=== PATIENT | male | born 1985 | race Caucasian/White ===

== ENCOUNTER 2017-01-24 06:58 | Emergency (ER) | payer BC ==
[2017-01-24] MEDS ORDERED: Sodium Chloride 0.9% 10 ML Syringe FLUSH PRN (07:12)
[2017-01-24] MEDS ORDERED: Ketorolac 30 MG/ML SDV IVPUSH ONE (07:12)
[2017-01-24] MEDS ORDERED: Ondansetron 4 MG/2 ML SDV IVPUSH ONE (07:12)
[2017-01-24] MEDS ORDERED: Sodium Chloride 0.9% 2.5 ML Syringe FLUSH PRN (07:12)
[2017-01-24] MEDS ORDERED: Sodium Chloride 0.9% 1,000 ML IV ONE (07:12)
[2017-01-24] MEDS ORDERED: HYDROmorphone 2 MG/ML Syringe IVPUSH ONE (07:12)
--- NOTE | 2017-01-24 07:16 | EDM.PDOC ---
ED HPI GENERAL MEDICAL PROBLEM - General Chief Complaint: Abdominal Pain Stated Complaint: ABDOMINAL PAIN, THINKS APPENDICITIS Time Seen by Provider: 01/24/17 07:07 - History of Present Illness INITIAL COMMENTS - FREE TEXT/NARRATIVE: HISTORY AND PHYSICAL: History of present illness: The patient is a healthy 31-year-old male with no pre-existing medical problems who presents with complaints of right lower quadrant pain that started gradually this morning at about 5 AM and has continued. He did not start elsewhere and migrate and it does not radiate and it is a stabbing-like character and deep according to the patient. He has no history of trauma and did have an episode of vomiting before coming here. He said he felt very hot car driving here and in fact had the air conditioning on but now feels cold. He has not had any pre-existing upper respiratory symptoms and he did not eat any new foods. He's had no diarrhea and has had normal bowel movements the last few days without black or blood. The patient has no urinary complaints and did not take anything for pain prior to coming here. He says he has had pain like this in the past and it was diagnosed as colitis but that was quite some time ago and this is somewhat different. He is Concerned that this is appendicitis. He has no testicular pain or swelling and no masses in his perineum. Please note that the patient had a normal evening last night eating [employer] for dinner and he slept the whole night waking for work without the pain. The pain started gradually as he was getting ready and going to work Review of systems: As per history of present illness and below otherwise all systems reviewed and negative. Past medical history: As per history of present illness and as reviewed below otherwise noncontributory. Surgical history: As per history of present illness and as reviewed below otherwise noncontributory. Social history: No reported history of drug or alcohol abuse. Family history: As per history of present illness and as reviewed below otherwise noncontributory. Physical exam: General: Well-developed well-nourished man who is nontoxic speaking in full sentences. He is mildly overweight and vital signs have been reviewed by me HEENT: Atraumatic, normocephalic, negative for conjunctival pallor or scleral icterus, mucous membranes tacky throat clear, neck supple, nontender, trachea midline. Lungs: Clear to auscultation, breath sounds equal bilaterally, chest nontender. Heart: S1S2, regular, negative for clicks, rubs, or JVD. Abdomen: Soft, nondistended, mildly tender on deep palpation in the right lower quadrant without rebound or guarding, bowel sounds are hypoactive and there is no tympany. Negative for masses or hepatosplenomegaly. Pelvis: Stable nontender. Genitourinary: Deferred. Rectal: Deferred. Extremities: Atraumatic, negative for cords or calf pain. Neurovascular unremarkable. Neuro: Awake, alert, oriented. Cranial nerves II through XII unremarkable. Cerebellum unremarkable. Motor and sensory unremarkable throughout. Exam nonfocal. Diagnostics: CBC CMP lipase UA CT scan of the abdomen and pelvis Therapeutics: IV fluids Toradol Dilaudid Zofran Flomax Patient feels improved and we have discussed all testing results including the 4 mm proximal stone on the right side. I will give a dose of Flomax here and a prescription for home as well as [place] and Zofran and urine strainers. The patient is aware of reasons to return to the ED and is aware of the need to connect with urology. He says he is going back home to [place] next week and I told him he can either connect here or with the urologist early next week at home Impression: Right ureteraolithiasis Definitive disposition and diagnosis as appropriate pending reevaluation and review of above. - Related Data Allergies Allergy/AdvReac Type Severity Reaction Status Date / Time No Known Allergies Allergy Verified 01/24/17 06:59 Home Meds: Home Meds . [No Known Home Meds] 01/24/17 [History] Past Medical History HEENT History: Reports: None Cardiovascular History: Reports: None Respiratory History: Reports: None Gastrointestinal History: Reports: None Genitourinary History: Reports: None Musculoskeletal History: Reports: None Neurological History: Reports: None Psychiatric History: Reports: None Endocrine/Metabolic History: Reports: None Hematologic History: Reports: None Immunologic History: Reports: None Oncologic (Cancer) History: Reports: None Dermatologic History: Reports: None - Past Surgical History Head Surgeries/Procedures: Reports: None HEENT Surgical History: Reports: None Cardiovascular Surgical History: Reports: None Respiratory Surgical History: Reports: None GI Surgical History: Reports: None Male Surgical History: Reports: None Endocrine Surgical History: Reports: None Neurological Surgical History: Reports: None Musculoskeletal Surgical History: Reports: None Oncologic Surgical History: Reports: None Dermatological Surgical History: Reports: None Social & Family History - Family History Family Medical History: Noncontributory - Tobacco Use Smoking Status *Q: Never Smoker - Caffeine Use Caffeine Use: Reports: Coffee, Energy Drinks, Soda, Tea - Recreational Drug Use Recreational Drug Use: No ED ROS GENERAL - Review of Systems Review Of Systems: ROS reveals no pertinent complaints other than HPI. ED EXAM, GENERAL - Physical Exam Exam: See Below (See dictation) Course - Vital Signs Last Recorded V/S: Last Vital Signs Temp 36.2 C 01/24/17 06:59 Pulse 65 01/24/17 06:59 Resp 18 01/24/17 06:59 BP 176/89 H 01/24/17 06:59 Pulse Ox 96 01/24/17 06:59 - Orders/Labs/Meds Orders: Active Orders 24 hr Category Date Time Status Communication Order [RC] STAT Care 01/24/17 09:51 Ordered Sodium Chloride 0.9% [Saline Flush] Med 01/24/17 07:12 Active 10 ml FLUSH ASDIRECTED PRN Sodium Chloride 0.9% [Saline Flush] Med 01/24/17 07:12 Active 2.5 ml FLUSH ASDIRECTED PRN Saline Lock Insert [OM.PC] Stat Oth 01/24/17 07:11 Ordered Medication Orders Sodium Chloride (Saline Flush) 10 ml FLUSH ASDIRECTED PRN PRN Reason: Keep Vein Open Last Admin: 01/24/17 07:35 Dose: 10 ml Sodium Chloride (Saline Flush) 2.5 ml FLUSH ASDIRECTED PRN PRN Reason: Keep Vein Open Last Admin: 01/24/17 07:34 Dose: 2.5 ml Labs: Laboratory Tests 01/24/17 01/24/17 01/24/17 Range/Units 07:40 07:40 07:40 WBC 7.98 (4.0-11.0) K/uL RBC 5.55 (4.50-5.90) M/uL Hgb 16.8 (13.0-17.0) g/dL Hct 47.6 (38.0-50.0) % MCV 85.8 (80.0-98.0) fL MCH 30.3 (27.0-32.0) pg MCHC 35.3 (31.0-37.0) g/dL RDW Std Deviation 41.7 (28.0-62.0) fl RDW Coeff of Martina 14 (11.0-15.0) % Plt Count 224 (150-400) K/uL MPV 10.60 (7.40-12.00) fL Neut % (Auto) 83.8 H (48.0-80.0) % Lymph % (Auto) 11.7 L (16.0-40.0) % [place] % (Auto) 3.9 (0.0-15.0) % Eos % (Auto) 0.3 (0.0-7.0) % Baso % (Auto) 0.3 (0.0-1.5) % Neut # (Auto) 6.7 H (1.4-5.7) K/uL Lymph # (Auto) 0.9 (0.6-2.4) K/uL [place] # (Auto) 0.3 (0.0-0.8) K/uL Eos # (Auto) 0.0 (0.0-0.7) K/uL Baso # (Auto) 0.0 (0.0-0.1) K/uL Nucleated RBC % 0.0 /100WBC Nucleated RBCs # 0 K/uL Sodium 140 (136-146) mmol/L Potassium 4.0 (3.5-5.1) mmol/L Chloride 106 (98-110) mmol/L Carbon Dioxide 26 (21-31) mmol/L BUN 13 (6.0-23.0) mg/dL Creatinine 1.0 (0.6-1.5) mg/dL Est Cr Clr Drug Dosing 115.32 mL/min Estimated GFR (MDRD) > 60.0 ml/min Glucose 116 H (60-110) mg/dL Calcium 9.8 (8.8-10.8) mg/dL Total Bilirubin 0.5 (0.1-1.5) mg/dL AST 27 (5-40) IU/L ALT 56 H (8-54) IU/L Alkaline Phosphatase 73 (40-150) Total Protein 7.6 (6.0-8.0) g/dL Albumin 4.7 (3.5-5.0) g/dL Globulin 2.9 (2.0-3.5) g/dL Albumin/Globulin Ratio 1.6 (1.3-2.8) Lipase 29 (7-80) U/L Urine Color YELLOW Urine Appearance CLEAR Urine pH 7.0 (5.0-8.0) Ur Specific [place] 1.010 (1.001-1.035) Urine Protein NEGATIVE (NEGATIVE) mg/dL Urine Glucose (UA) NEGATIVE (NEGATIVE) mg/dL Urine Ketones NEGATIVE (NEGATIVE) mg/dL Urine Occult Blood LARGE H (NEGATIVE) Urine Nitrite NEGATIVE (NEGATIVE) Urine Bilirubin NEGATIVE (NEGATIVE) Urine Urobilinogen 0.2 (<2.0) EU/dL Ur Leukocyte Esterase NEGATIVE (NEGATIVE) Urine RBC 30-40 (0-2/HPF) Urine WBC 2-4 (0-5/HPF) Ur Epithelial Cells FEW (NONE-FEW) Urine Bacteria RARE (NEGATIVE) Meds: Medications Generic Name Dose Route Start Last Admin Trade Name Danette PRN Reason Stop Dose Admin Sodium Chloride 10 ml 01/24/17 07:12 01/24/17 07:35 Saline Flush FLUSH 10 ml ASDIRECTED PRN Administration Keep Vein Open Sodium Chloride 2.5 ml 01/24/17 07:12 01/24/17 07:34 Saline Flush FLUSH 2.5 ml ASDIRECTED PRN Administration Keep Vein Open Discontinued Medications Generic Name Dose Route Start Last Admin Trade Name Danette PRN Reason Stop Dose Admin Hydromorphone HCl 0.5 mg 01/24/17 07:12 01/24/17 07:33 Dilaudid IVPUSH 01/24/17 07:13 0.5 mg ONETIME ONE Administration Sodium Chloride 1,000 mls @ 999 mls/hr 01/24/17 07:12 01/24/17 07:32 Normal Saline IV 01/24/17 08:12 999 mls/hr STAT ONE Administration Iopamidol 100 ml 01/24/17 09:01 01/24/17 09:03 Isovue Multipack-370 (76%) IVPUSH 01/24/17 09:02 100 ml ONETIME STA Administration Ketorolac Tromethamine 30 mg 01/24/17 07:12 01/24/17 07:33 Toradol IVPUSH 01/24/17 07:13 30 mg ONETIME ONE Administration Ondansetron HCl 4 mg 01/24/17 07:12 01/24/17 07:33 Zofran IVPUSH 01/24/17 07:13 4 mg ONETIME ONE Administration Tamsulosin HCl 0.4 mg 01/24/17 09:51 Flomax PO 01/24/17 09:52 ONETIME ONE Departure - Departure Time of Disposition: 09:54 Disposition: Home, Self-Care 01 Condition: Good Clinical Impression: Ureterolithiasis, Kidney stone on right side - Discharge Information Referrals: PCP,None [Primary Care Provider] - Forms: ED Department Discharge Additional Instructions: The following information is given to patients seen in the emergency department who are being discharged to home. This information is to outline your options for follow-up care. We provide all patients seen in our emergency department with a follow-up referral. The need for follow-up, as well as the timing and circumstances, are variable depending upon the specifics of your emergency department visit. If you don't have a primary care physician on staff, we will provide you with a referral. We always advise you to contact your personal physician following an emergency department visit to inform them of the circumstance of the visit and for follow-up with them and/or the need for any referrals to a consulting specialist. The emergency department will also refer you to a specialist when appropriate. This referral assures that you have the opportunity for followup care with a specialist. All of these measure are taken in an effort to provide you with optimal care, which includes your followup. Under all circumstances we always encourage you to contact your private physician who remains a resource for coordinating your care. When calling for followup care, please make the office aware that this follow-up is from your recent emergency room visit. If for any reason you are refused follow-up, please contact the [facility] emergency department at and ask to speak to the emergency department charge nurse. [facility] Specialty Care-Urology [address] [place] [id number] [facility] Primary care- Internal Medicine and Family [address] [id number] Please push hydration and strain all urine looking for the stone. Take medications as prescribed. Please call and follow-up with the urologist either here or when you get home for evaluation of the movement of the stone. Return to ER as needed and as discussed - My Orders Last 24 Hours: My Active Orders 01/24/17 07:11 Saline Lock Insert [OM.PC] Stat 01/24/17 07:12 Sodium Chloride 0.9% [Saline Flush] 10 ml FLUSH ASDIRECTED PRN Sodium Chloride 0.9% [Saline Flush] 2.5 ml FLUSH ASDIRECTED PRN 01/24/17 09:51 Communication Order [RC] STAT - Assessment/Plan Last 24 Hours: My Active Orders 01/24/17 07:11 Saline Lock Insert [OM.PC] Stat 01/24/17 07:12 Sodium Chloride 0.9% [Saline Flush] 10 ml FLUSH ASDIRECTED PRN Sodium Chloride 0.9% [Saline Flush] 2.5 ml FLUSH ASDIRECTED PRN 01/24/17 09:51 Communication Order [RC] STAT
[2017-01-24 08:38] LABS: CHLORIDE,CL 106 mmol/L (98-110); SODIUM,NA 140 mmol/L (136-146)
[2017-01-24] MEDS ORDERED: Iopamidol 755 MG/ML 500 ML Multipack Bottle IVPUSH STA (09:01)
--- NOTE | 2017-01-24 09:38 | CT ---
CT of the abdomen and pelvis with contrast. HISTORY: Pain TECHNIQUE: Axial CT images were obtained of the abdomen and pelvis following administration of 100 mL of Isovue-370 in the left antecubital fossa without complication. Coronal and sagittal reconstructio ns obtained. FINDINGS: The lung bases are clear, no pleural effusion. Liver, spleen, adrenal glands, and pancreas appear normal. The gallbladder is normal. No bulky retrop eritoneal lymphadenopathy or abdominal ascites. The kidneys enhance and function symmetrically. There is a 4 to 5 mm stone within the proximal right ureter with mild proximal hydronephrosis. There is a cyst within the left kidney. Tiny nonobstructing stone within the lower pole of the right kidney also noted. The large and small bowel are normal in caliber without evidence of obstruction. The appendix is norm al. No focal pericolonic inflammation or stranding. The urinary bladder appears normal. No bulky pelv ic lymphadenopathy or free pelvic fluid. No suspicious osseous abnormalities identified. IMPRESSION: 1. There is a 4 mm stone within the proximal right ureter with minimal proximal hydronephrosis.
[2017-01-24] MEDS ORDERED: Tamsulosin 0.4 MG Cap.ER PO ONE (09:51)
[2017-01-24 10:15] VITALS: BP 136/85
== END 2017-01-24 10:07 | disposition home or self-care (01) ==
LOC: MW.ED 06:58
DX: N13.2 Hydronephrosis with renal and ureteral calculous obstruction (principal)
CPT/HCPCS: 74177; 80053; 81001; 83690; 85025; 96361; 96374; 96375; 99284; A9270; J1170; J1885; J2405; J7040; Q9967; 99283

== ENCOUNTER 2017-03-10 01:11 | Emergency (ER) | payer BC ==
[2017-03-10] MEDS ORDERED: Ketorolac 30 MG/ML SDV IVPUSH ONE (01:21)
[2017-03-10] MEDS ORDERED: Tamsulosin 0.4 MG Cap.ER PO ONE (01:21)
[2017-03-10] MEDS ORDERED: Ondansetron 4 MG/2 ML SDV IVPUSH ONE (01:21)
--- NOTE | 2017-03-10 01:28 | EDM.PDOC ---
ED HPI GENERAL MEDICAL PROBLEM - General Chief Complaint: Flank Pain Stated Complaint: SEVERE ABDOMINAL PAIN/RT TESTICLE Time Seen by Provider: 03/10/17 01:25 - History of Present Illness INITIAL COMMENTS - FREE TEXT/NARRATIVE: HISTORY AND PHYSICAL: History of present illness: Patient [id number] white male history of urolithiasis was seen in the ER several months prior for this and now presents with same right flank tenderness nausea without vomiting fever chills denies trauma denies other concern Review of systems: As per history of present illness and below otherwise all systems reviewed and negative. Past medical history: As per history of present illness and as reviewed below otherwise noncontributory. Surgical history: As per history of present illness and as reviewed below otherwise noncontributory. Social history: No reported history of drug or alcohol abuse. Family history: As per history of present illness and as reviewed below otherwise noncontributory. Physical exam: HEENT: Atraumatic, normocephalic, pupils reactive, negative for conjunctival pallor or scleral icterus, mucous membranes moist, throat clear, neck supple, nontender, trachea midline. Lungs: Clear to auscultation, breath sounds equal bilaterally, chest nontender. Heart: S1S2, regular, negative for clicks, rubs, or JVD. Abdomen: Soft, nondistended, nontender. Negative for masses or hepatosplenomegaly. Right-sided costovertebral tenderness. Pelvis: Stable nontender. Genitourinary: Deferred. Rectal: Deferred. Extremities: Atraumatic, negative for cords or calf pain. Neurovascular unremarkable. Neuro: Awake, alert, oriented. Cranial nerves II through XII unremarkable. Cerebellum unremarkable. Motor and sensory unremarkable throughout. Exam nonfocal. Diagnostics: CBC CMP UA urine culture renal ultrasound Therapeutics: Normal saline 1 L bolus Toradol 30 mg IV Zofran 4 g IV Flomax 0.4 mg by mouth Impression: 1 acute right flank tenderness #2 history of ureterolithiasis Definitive disposition and diagnosis as appropriate pending reevaluation and review of above. - Related Data Allergies Allergy/AdvReac Type Severity Reaction Status Date / Time No Known Allergies Allergy Verified 03/10/17 01:16 Home Meds: Home Meds . [No Known Home Meds] 01/24/17 [History] Past Medical History HEENT History: Reports: None Cardiovascular History: Reports: None Respiratory History: Reports: None Gastrointestinal History: Reports: None Genitourinary History: Reports: None Musculoskeletal History: Reports: None Neurological History: Reports: None Psychiatric History: Reports: None Endocrine/Metabolic History: Reports: None Hematologic History: Reports: None Immunologic History: Reports: None Oncologic (Cancer) History: Reports: None Dermatologic History: Reports: None - Past Surgical History Head Surgeries/Procedures: Reports: None HEENT Surgical History: Reports: None Cardiovascular Surgical History: Reports: None Respiratory Surgical History: Reports: None GI Surgical History: Reports: None Male Surgical History: Reports: None Endocrine Surgical History: Reports: None Neurological Surgical History: Reports: None Musculoskeletal Surgical History: Reports: None Oncologic Surgical History: Reports: None Dermatological Surgical History: Reports: None Social & Family History - Family History Family Medical History: Noncontributory - Tobacco Use Smoking Status *Q: Never Smoker - Caffeine Use Caffeine Use: Reports: Coffee, Energy Drinks, Soda, Tea - Recreational Drug Use Recreational Drug Use: No ED ROS GENERAL - Review of Systems Review Of Systems: ROS reveals no pertinent complaints other than HPI. ED EXAM, GENERAL - Physical Exam Exam: See Below (See dictation) Course - Vital Signs Last Recorded V/S: Last Vital Signs Temp 36.6 C 03/10/17 01:11 Pulse 69 03/10/17 01:11 Resp 20 03/10/17 01:11 BP 132/92 H 03/10/17 01:11 Pulse Ox 98 03/10/17 01:11 - Orders/Labs/Meds Orders: Active Orders 24 hr Category Date Time Status Retroperitoneal Ltd [US] Stat Exams 03/10/17 01:25 Taken CULTURE URINE [RM] Stat Lab 03/10/17 01:40 Received Sodium Chloride 0.9% [Normal Saline] 1,000 ml Med 03/10/17 01:44 Active IV .Bolus Medication Orders Sodium Chloride (Normal Saline) 1,000 mls @ 999 mls/hr IV .Bolus ONE Stop: 03/10/17 02:44 Last Admin: 03/10/17 01:47 Dose: Not Given Labs: Laboratory Tests 03/10/17 03/10/17 03/10/17 Range/Units 01:40 01:40 01:40 WBC 11.37 H (4.0-11.0) K/uL RBC 5.49 (4.50-5.90) M/uL Hgb 16.4 (13.0-17.0) g/dL Hct 46.9 (38.0-50.0) % MCV 85.4 (80.0-98.0) fL MCH 29.9 (27.0-32.0) pg MCHC 35.0 (31.0-37.0) g/dL RDW Std Deviation 40.3 (28.0-62.0) fl RDW Coeff of Martina 13 (11.0-15.0) % Plt Count 244 (150-400) K/uL MPV 10.40 (7.40-12.00) fL Neut % (Auto) 85.3 H (48.0-80.0) % Lymph % (Auto) 9.2 L (16.0-40.0) % [place] % (Auto) 4.8 (0.0-15.0) % Eos % (Auto) 0.4 (0.0-7.0) % Baso % (Auto) 0.3 (0.0-1.5) % Neut # (Auto) 9.7 H (1.4-5.7) K/uL Lymph # (Auto) 1.1 (0.6-2.4) K/uL [place] # (Auto) 0.6 (0.0-0.8) K/uL Eos # (Auto) 0.1 (0.0-0.7) K/uL Baso # (Auto) 0.0 (0.0-0.1) K/uL Sodium 139 (136-146) mmol/L Potassium 4.0 (3.5-5.1) mmol/L Chloride 106 (98-110) mmol/L Carbon Dioxide 24 (21-31) mmol/L BUN 15 (6.0-23.0) mg/dL Creatinine 1.1 (0.6-1.5) mg/dL Est Cr Clr Drug Dosing TNP Estimated GFR (MDRD) > 60.0 ml/min Glucose 142 H (60-110) mg/dL Calcium 9.6 (8.8-10.8) mg/dL Total Bilirubin 0.5 (0.1-1.5) mg/dL AST 30 (5-40) IU/L ALT 61 H (8-54) IU/L Alkaline Phosphatase 82 (40-150) Total Protein 7.6 (6.0-8.0) g/dL Albumin 4.7 (3.5-5.0) g/dL Globulin 2.9 (2.0-3.5) g/dL Albumin/Globulin Ratio 1.6 (1.3-2.8) Urine Color YELLOW Urine Appearance CLEAR Urine pH 7.0 (5.0-8.0) Ur Specific [place] 1.020 (1.001-1.035) Urine Protein NEGATIVE (NEGATIVE) mg/dL Urine Glucose (UA) NEGATIVE (NEGATIVE) mg/dL Urine Ketones NEGATIVE (NEGATIVE) mg/dL Urine Occult Blood NEGATIVE (NEGATIVE) Urine Nitrite NEGATIVE (NEGATIVE) Urine Bilirubin NEGATIVE (NEGATIVE) Urine Urobilinogen 0.2 (<2.0) EU/dL Ur Leukocyte Esterase NEGATIVE (NEGATIVE) Urine RBC 1-3 (0-2/HPF) Urine WBC 1-3 (0-5/HPF) Ur Epithelial Cells RARE (NONE-FEW) Urine Bacteria FEW (NEGATIVE) Meds: Medications Generic Name Dose Route Start Last Admin Trade Name Freq PRN Reason Stop Dose Admin Sodium Chloride 1,000 mls @ 999 mls/hr 03/10/17 01:44 03/10/17 01:47 Normal Saline IV 03/10/17 02:44 Not Given .Bolus ONE Discontinued Medications Generic Name Dose Route Start Last Admin Trade Name Freq PRN Reason Stop Dose Admin Sodium Chloride 1,000 mls @ 999 mls/hr 03/10/17 01:30 03/10/17 01:43 Normal Saline IV 999 mls/hr ASDIRECTED SANJANA Administration Ketorolac Tromethamine 30 mg 03/10/17 01:21 03/10/17 01:43 Toradol IVPUSH 03/10/17 01:22 30 mg ONETIME ONE Administration Ondansetron HCl 4 mg 03/10/17 01:21 03/10/17 01:44 Zofran IVPUSH 03/10/17 01:22 4 mg ONETIME ONE Administration Tamsulosin HCl 0.4 mg 03/10/17 01:21 03/10/17 01:46 Flomax PO 03/10/17 01:22 0.4 mg ONETIME ONE Administration Departure - Departure Time of Disposition: 02:28 Disposition: Home, Self-Care 01 Condition: Good Clinical Impression: Right flank pain - Discharge Information Referrals: PCP,None [Primary Care Provider] - Forms: ED Department Discharge Additional Instructions: The following information is given to patients seen in the emergency department who are being discharged to home. This information is to outline your options for follow-up care. We provide all patients seen in our emergency department with a follow-up referral. The need for follow-up, as well as the timing and circumstances, are variable depending upon the specifics of your emergency department visit. If you don't have a primary care physician on staff, we will provide you with a referral. We always advise you to contact your personal physician following an emergency department visit to inform them of the circumstance of the visit and for follow-up with them and/or the need for any referrals to a consulting specialist. The emergency department will also refer you to a specialist when appropriate. This referral assures that you have the opportunity for followup care with a specialist. All of these measure are taken in an effort to provide you with optimal care, which includes your followup. Under all circumstances we always encourage you to contact your private physician who remains a resource for coordinating your care. When calling for followup care, please make the office aware that this follow-up is from your recent emergency room visit. If for any reason you are refused follow-up, please contact the [facility] emergency department at and asked to speak to the emergency department charge nurse. [facility] Specialty Care - Urology [address] [place] [id number] Motrin/Tylenol as directed follow-up with urology clinic above return as needed as discussed - My Orders Last 24 Hours: My Active Orders 03/10/17 01:25 Retroperitoneal Ltd [US] Stat 03/10/17 01:40 CULTURE URINE [RM] Stat 03/10/17 01:44 Sodium Chloride 0.9% [Normal Saline] 1,000 ml IV .Bolus - Assessment/Plan Last 24 Hours: My Active Orders 03/10/17 01:25 Retroperitoneal Ltd [US] Stat 03/10/17 01:40 CULTURE URINE [RM] Stat 03/10/17 01:44 Sodium Chloride 0.9% [Normal Saline] 1,000 ml IV .Bolus
[2017-03-10] MEDS ORDERED: Sodium Chloride 0.9% 1,000 ML IV SCH (01:30)
[2017-03-10] MEDS ORDERED: Sodium Chloride 0.9% 1,000 ML IV ONE (01:44)
[2017-03-10 02:11] LABS: CHLORIDE,CL 106 mmol/L (98-110); SODIUM,NA 139 mmol/L (136-146)
[2017-03-10 02:55] VITALS: BP 127/88
--- NOTE | 2017-03-10 14:19 | US ---
EXAM DATE: 03/10/17 PATIENT'S AGE: 32 Patient: RAGHU PARDO Facility: [place], [place] Site . Site : 1985 Study: US Abdomen [id number] 2:07:48 AM Ordering Physician: Laura Chapin Final Report: INDICATION: Right flank pain TECHNIQUE: Ultrasound renal bilateral. [place]-scale and color Doppler sonographic images were acquired of the kidneys and urinary bladder. COMPARISON: CT 01/24/17 FINDINGS: Right kidney: 11.7 cm. Normal echotexture and cortex noted. Mild right renal pelvicaliectasis is seen. Left kidney: 11.8 cm. Normal echotexture and cortex noted. No masses, stones, or hydronephrosis seen. Bladder: The bladder is unremarkable in appearance. A right ureteral jet is noted. IMPRESSION: 1. Mild right renal pelvicaliectasis is seen. Dictated by Christian Pillai MD @ 03/10/2017 2:18:45 AM Dictated by: Christian Pillai MD @ 03/10/2017 02:19:03 (Electronic Signature) Report Signed by Proxy. [facility]
== END 2017-03-10 02:57 | disposition home or self-care (01) ==
LOC: MW.ED 01:11
DX: R10.9 Unspecified abdominal pain (principal); R10.819 Abdominal tenderness, unspecified site
CPT/HCPCS: 36415; 76775; 80053; 81001; 85025; 87086; 96361; 96374; 96375; 99284; A9270; J1885; J2405; J7040; 99282

== ENCOUNTER 2017-03-14 07:40 | Day surgery (SDC) | payer BC ==
[~2017-03-14 07:40] MED LIST: Iopamidol 408 MG/ML 50 ML SDV ONE; Lactated Ringers 1,000 ML IV SCH; Sodium Chloride 0.9% 2.5 ML Syringe FLUSH PRN; ceFAZolin 2 GM in Premix Bag 1 BAG IV ONE
[2017-03-14] MEDS ORDERED: Sodium Chloride 0.9% 10 ML Syringe FLUSH PRN (08:00)
[2017-03-14] MEDS ORDERED: Lidocaine 2% 5 ML SDV ONE (08:55)
[2017-03-14] MEDS ORDERED: Rocuronium 10 MG/ML 10 ML Syringe ONE (08:56)
[2017-03-14] MEDS ORDERED: Ketorolac 30 MG/ML SDV ONE (08:56)
[2017-03-14] MEDS ORDERED: Midazolam 1 MG/ML 2 ML SDV ONE (08:56)
[2017-03-14] MEDS ORDERED: Neostigmine Methylsulfate 1 MG/ML 5 ML Syringe ONE (08:56)
[2017-03-14] MEDS ORDERED: fentaNYL 100 MCG/2 ML SDV ONE (08:56)
[2017-03-14] MEDS ORDERED: Propofol 200 MG/20 ML SDV ONE (08:56)
[2017-03-14] MEDS ORDERED: Ondansetron 4 MG/2 ML SDV ONE (08:56)
--- NOTE | 2017-03-14 09:28 | PCM.PREANE ---
Preanesthetic Assessment - Anesthesia/Transfusion/Family Hx Anesthesia History: No Prior Anesthesia Family History of Anesthesia Reaction: No Transfusion History: No Prior Transfusion(s) Intubation History: Unknown - Review of Systems General: No Symptoms Pulmonary: No Symptoms, Other (recent cold, no coughing presently) Cardiovascular: No Symptoms Gastrointestinal: Abdominal Pain (mild pain over kidney , no pain meds used) Neurological: No Symptoms Other: Reports: None - Physical Assessment NPO Status Date: 03/13/17 NPO Status Time: 20:00 O2 Sat by Pulse Oximetry: 98 Respiratory Rate: 16 Vital Signs: Last Vital Signs Temp 98.1 F 03/14/17 07:50 Pulse 65 03/14/17 07:50 Resp 16 03/14/17 07:50 BP 141/91 H 03/14/17 07:50 Pulse Ox 98 03/14/17 07:50 Height: 6 ft Weight: 230 lb ASA Class: 2 Mental Status: Alert & Oriented x3 Airway Class: Mallampati = 1 Dentition: Reports: Normal Dentition Thyro-Mental Finger Breadths: 3 Mouth Opening Finger Breadths: 3 ROM/Head Extension: Full Lungs: Clear to Auscultation, Normal Respiratory Effort Cardiovascular: Regular Rate, Regular Rhythm, No Murmurs - Allergies Allergies/Adverse Reactions: Allergies Allergy/AdvReac Type Severity Reaction Status Date / Time No Known Allergies Allergy Verified 03/10/17 01:16 - Blood Blood Available: No Product(s) Available: None - Acknowledgements Anesthesia Type Planned: General Anesthesia (LMA vs OETT) Pt an Appropriate Candidate for the Planned Anesthesia: Yes Alternatives and Risks of Anesthesia Discussed w Pt/Guardian: Yes Pt/Guardian Understands and Agrees with Anesthesia Plan: Yes PreAnesthesia Questionnaire - Past Health History Medical/Surgical History: Denies Medical/Surgical History HEENT History: Reports: None Cardiovascular History: Reports: None Respiratory History: Reports: None Gastrointestinal History: Reports: None Genitourinary History: Reports: None Musculoskeletal History: Reports: Fracture Other Musculoskeletal History: hx of fx arm and clavicle as a child Neurological History: Reports: None Psychiatric History: Reports: None Endocrine/Metabolic History: Reports: Obesity/BMI 30+ Hematologic History: Reports: None Immunologic History: Reports: None Oncologic (Cancer) History: Reports: None Dermatologic History: Reports: None - Past Surgical History Male Surgical History: Reports: Vasectomy - SUBSTANCE USE Smoking Status *Q: Never Smoker Recreational Drug Use History: No - HOME MEDS Home Medications: Home Meds . [No Known Home Meds] 01/24/17 [History] - CURRENT (IN HOUSE) MEDS Current Meds: Current Medications Lactated Ringer's (Ringers, Lactated) 1,000 mls @ 100 mls/hr IV ASDIRECTED SANJANA Last Admin: 03/14/17 07:57 Dose: 100 mls/hr Sodium Chloride (Saline Flush) 10 ml FLUSH ASDIRECTED PRN PRN Reason: Keep Vein Open Sodium Chloride (Saline Flush) 2.5 ml FLUSH ASDIRECTED PRN PRN Reason: Keep Vein Open Discontinued Medications Fentanyl (Sublimaze) Confirm Administered Dose 300 mcg .ROUTE .STK-MED ONE Stop: 03/14/17 08:57 Glycopyrrolate () Confirm Administered Dose 1 mg .ROUTE .STK-MED ONE Stop: 03/14/17 08:57 Cefazolin Sodium/Dextrose 2 gm (/ Premix) 50 mls @ 100 mls/hr IV ONCALL ONE Stop: 03/14/17 07:29 Iopamidol (Isovue-200 (41%)) Confirm Administered Dose 50 ml .ROUTE .STK-MED ONE Stop: 03/14/17 07:19 Ketorolac Tromethamine (Toradol) Confirm Administered Dose 30 mg .ROUTE .STK- MED ONE Stop: 03/14/17 08:57 Lidocaine (Xylocaine-Mpf 2%) Confirm Administered Dose 10 ml .ROUTE .STK-MED ONE Stop: 03/14/17 08:56 Midazolam HCl (Versed 1 Mg/Ml) Confirm Administered Dose 2 mg .ROUTE .STK-MED ONE Stop: 03/14/17 08:57 Neostigmine Methylsulfate (Neostigmine) Confirm Administered Dose 5 mg .ROUTE .STK-MED ONE Stop: 03/14/17 08:57 Ondansetron HCl (Zofran) Confirm Administered Dose 4 mg .ROUTE .STK-MED ONE Stop: 03/14/17 08:57 Propofol (Diprivan 20 Ml) Confirm Administered Dose 400 mg .ROUTE .STK-MED ONE Stop: 03/14/17 08:57 Rocuronium [place] (Zemuron) Confirm Administered Dose 100 mg .ROUTE .STK-MED ONE Stop: 03/14/17 08:57
[2017-03-14] MEDS ORDERED: fentaNYL 100 MCG/2 ML SDV IVPUSH PRN (10:31)
--- NOTE | 2017-03-14 11:24 | PCM.POSTAN ---
POST ANESTHESIA ASSESSMENT - MENTAL STATUS Mental Status: Alert, Oriented - VITAL SIGNS Pulse Rate: 69 SaO2: 96 Resp Rate: 16 Blood Pressure: 112/64 - RESPIRATORY Respiratory Status: Respiratory Rate WNL, Airway Patent, O2 Saturation Stable - CARDIOVASCULAR CV Status: Pulse Rate WNL, Blood Pressure Stable - GASTROINTESTINAL GI Status: No Symptoms - PAIN Pain Score: 0 - POST OP HYDRATION Hydration Status: Adequate & Stable
--- NOTE | 2017-03-14 11:39 | PCM48HPAN ---
Post Anesthesia Note - EVALUATION WITHIN 48HRS OF ANESTHETIC Vital Signs in Normal Range: Yes Patient Participated in Evaluation: Yes Respiratory Function Stable: Yes Airway Patent: Yes Cardiovascular Function Stable: Yes Hydration Status Stable: Yes Pain Control Satisfactory: Yes Nausea and Vomiting Control Satisfactory: Yes Mental Status Recovered: Yes - COMMENTS/OBSERVATIONS Free Text/Narrative:: To home
--- NOTE | 2017-03-14 12:02 | OR ---
SURGEON: Bran Hart M.D. DATE OF PROCEDURE: 03/14/2017 PREOPERATIVE DIAGNOSIS: Right lower ureteral stone. POSTOPERATIVE DIAGNOSIS: Right lower ureteral stone. OPERATION: Cystoscopy, ureteroscopy, stone removal. DESCRIPTION OF OPERATION: The patient was given general anesthesia, placed in dorsal lithotomy position, prepped and draped in sterile drapes. Cystourethroscopy was done that was normal. A guidewire was attempted, but could not pass by the stone, so a Glidewire was used that was advanced alongside the stone. The lower ureter was then dilated using the UroMax II balloon dilator to approximately 15-Arabic. The Glidewire was still in place. The rigid ureteroscope was advanced in the right lower ureter and the stone was grasped and removed. The ureter was not traumatized enough to require stent. The bladder was emptied and the patient was moved to recovery room in good condition. ENDER / FEDE /[id number]
[2017-03-14 13:17] VITALS: BP 117/80
--- NOTE | 2017-03-14 14:08 | CR ---
EXAMINATION: Ureteroscopy HISTORY: Stone removal COMPARISON: 03/13/2017 TECHNIQUE: Single fluoroscopic view provided FINDINGS/IMPRESSION: Operative control films demonstrate plate selection of the right ureter with bal loon stone removal.
== END 2017-03-14 12:40 | disposition home or self-care (01) ==
LOC: MW.SDS 07:40
PROVIDERS: ATTEND Urology
DX: N20.1 Calculus of ureter (principal); Z98.52 Vasectomy status
CPT/HCPCS: 52352; 76000; J1885; J2250; J2405; J3010; J7120; Q9966; 00910; 88300; C1769; J2704